=== PATIENT | female | born 1990 | race Caucasian/White ===

== ENCOUNTER → 2016-12-21 | Outpatient (CLI) | payer OTHER ==
[~2016-12-21] MED LIST: CEPH500C PO; PREN1CAP33 PO; SUBO8MIS SL
== END ==
LOC: HPND 11:19
PROVIDERS: ATTEND Obstetrics & Gynecology
DX: O99.322 Drug use complicating pregnancy, second trimester (principal); O09.32 Supervision of pregnancy with insufficient antenatal care, second trimester
CPT/HCPCS: 76811; 76825; 76827; 93325

== ENCOUNTER → 2017-01-24 | Outpatient (CLI) | payer OTHER ==
--- NOTE | 2017-01-24 18:30 | PD.CONS ---
Consult 01/24/17 @ 1330hr Ms. Desir came for outpatient diagnostic and required a consult regarding abstinence syndrome. She is 31 weeks gestation with use of Subutex 2gm per day. No other complications with at this time. Discuss with mother the signs and symptoms of MARVIN. Presented can be taken to maternal room after delivery if no complications arise during labor and delivery. Mother can have in room and instructed for signs to report to nurse so that the scoring is accurate on . will be transferred to NICU if pharmacological interventions is required. Informed mother that pharmacological treatment is started with 2 scores of 9 or 1 score of 10. Mother had done some research and was aware of the nonpharmacological therapies and the importance of breast feeding, which she would like to do. Mother demonstrated understanding and asked appropriate questions. Informed mother that will be under Neonatology Service when deliver. Total time of consult 40 minutes. Nina Tristan, Nina Arredondo January 24, 2017 18:30
== END ==
LOC: HPND 13:12
PROVIDERS: ATTEND Obstetrics & Gynecology
DX: O99.323 Drug use complicating pregnancy, third trimester (principal); O99.333 Smoking (tobacco) complicating pregnancy, third trimester; Z3A.30 30 weeks gestation of pregnancy
CPT/HCPCS: 76816

== ENCOUNTER → 2017-02-23 | Outpatient (CLI) | payer OTHER ==
[~2017-02-23] MED LIST changes: -CEPH500C PO
== END ==
LOC: HPND 14:26
PROVIDERS: ATTEND Obstetrics & Gynecology
DX: O99.322 Drug use complicating pregnancy, second trimester (principal)
CPT/HCPCS: 76816

== ENCOUNTER 2017-03-24 11:09 | Observation (INO) | payer OTHER ==
[2017-03-24] MEDS ORDERED: LACTATED RINGER'S 1000 ML INJ 1,000 ML IV SCH ×2 (11:15→14:24)
[2017-03-24] MEDS ORDERED: TERBUTALINE INJ 1 MG/ML AMP SQ ONE ×2 (11:15→15:00)
--- NOTE | 2017-03-24 11:48 | HHI.HP ---
HPI Chief Complaint Scheduled version Date Seen: Mar 24, 2017 Time Seen: 11:36 Travel History International Travel<30 Days: No Contact w/Intl Traveler<30Days: No History of Present Illness HPI Patient is a 26 year old at 38 and 6/7 weeks gestation, EDC 04/01/17, who presents for version. She endorses [place] contractions daily. She denies leakage of fluid, vaginal bleeding, and contractions. She feels baby moving regularly. [facility] History is remarkable for's substance abuse, currently on Subutex 2 mg per day. OB history is notable for with 2 induced diabetes and 1 full term delivery in 2013 of a 7 lbs. 11 oz. male. She is late to care at 18 weeks. EDC was derived from ultrasound at approximately 20 weeks gestation. labs are reviewed and unremarkable. Patient has document a blood type of B+. History Past Medical History Medical History: Denies Significant Hx Family History Family History: Negative Social History Alcohol Use: No Tobacco Use: No Substance Abuse: Yes (Subutex 2 mg daily reported) Allergies-Medications (Allergen,Severity, Reaction): Coded Allergies: Penicillin (Verified Allergy, Severe, 03/16/17) FAICAL SWELLING Sulfa (Verified Allergy, Severe, 03/16/17) ANAPHALAXIS Vancomycin (Unverified Allergy, Intermediate, Hives, 03/16/17) Home Meds Active Scripts Vit W/ Fe Polysacch C (Vitafol Fe+ 90-1-200 & 50 mg)1 Cap Cap1 Tab PO DAILY #30 BOTTLE Ref 11 Prov:Berenice Smith 12/23/16 Reported Medications Suboxone 8 mg/2 mg 8 mg/2 mg Subl4 Mg SL DAILY SUBLINGUAL STRIP. 03/06/15 Review of Systems Except as stated in HPI: all other systems reviewed are Neg Physical Exam Narrative GENERAL: Well-nourished, well-developed female SKIN: Warm and dry. HEAD: Normocephalic and atraumatic. EYES: No scleral icterus. No injection or drainage. ENT: No nasal drainage noted. Mucous membranes pink. Airway patent. NECK: Supple, trachea midline. No JVD. CARDIOVASCULAR: Regular rate and rhythm without murmurs, gallops, or rubs. RESPIRATORY: Breath sounds equal bilaterally. No accessory muscle use. ABDOMEN/GI: Abdomen soft, non-tender, bowel sounds present, no rebound, no guarding. Breech on palpation. US at bedside notable for breech presentation and anterior placenta. GENITOURINARY: External Genitalia: intact and normal in appearance Cervix: closed, 50%, high, mid pos Uterine Contractions: absent FHT's: Category: 1 Baseline: 140 Reactive:[] Variability: mod Decels: absent EXTREMITIES: No cyanosis or edema. BACK: Nontender without obvious deformity. No CVA tenderness. NEUROLOGICAL: Awake and alert. Motor and sensory grossly within normal limits. Five out of 5 muscle strength in all muscle groups. Normal speech. Data Data Vital Signs Reviewed: Yes (111/73, pulse 118, respirations 18, temp 98.9F) Orders Place In Observation (03/24/17 ) ^ Ultrasound For [place]atio (03/24/17 11:15) ^ Non Stress Test (03/24/17 11:15) ^ Status (03/24/17 11:15) ^ Rhogam (03/24/17 11:15) Lactated Ringer's 1000 Ml Inj (Lr 1000 M (03/24/17 11:15) Terbutaline Inj (Brethine Inj) (03/24/17 11:15) Fentanyl Inj (Fentanyl Inj) (03/24/17 11:15) Complete Blood Count With Diff (03/24/17 11:32) Type And Screen (03/24/17 11:32) Assessment/Plan Assessment and Plan 26-year-old at 38 and 6/7 weeks who is admitted for attempted version of frequent presentation [place] . Intrauterine : Category 1 tracing Patient desires vaginal delivery Breech presentation Will obtain CBC and type and screen Will obtain normal NST and monitored on toco Will attempt bedside after administration of fentanyl and terbutaline If version unsuccessful, we will discharge home, likely schedule section near 40 weeks If complication occurs, may require urgent delivery, for which patient was counseled GBS negative Substance use affecting Subutex 2 mg daily Will need UA/UDS if admitted for labor or Seen and discussed with Dr. Robbins, attending Gisele Velez MD R1 Mar 24, 2017 11:48
[2017-03-24 13:40] LABS: AUTOMATED NEUTROPHIL # 10.4 TH/MM3 (1.8-7.7); BASOPHIL % 0.2 % (0.0-2.0); EOSINOPHIL # 0.2 TH/MM3 (0-0.4); EOSINOPHIL % 1.4 % (0.0-4.0); HEMATOCRIT 34.6 % (35.0-46.0); HEMO FLAGS DIFF FINAL; LYMPH % 18.6 % (9.0-44.0); LYMPHOCYTE # 2.7 TH/MM3 (1.0-4.8); MEAN CELL VOLUME 91.3 FL (80.0-100.0); MEAN CORPUSCULAR HEMOGLOBIN 30.9 PG (27.0-34.0); MEAN CORPUSCULAR HGB CONC 33.8 % (32.0-36.0); MONO % 7.3 % (0.0-8.0); NEUT % 72.5 % (16.0-70.0); PLATELET COUNT 273 TH/MM3 (150-450); RED BLOOD COUNT 3.79 MIL/MM3 (4.00-5.30); RED CELL DISTRIBUTION WIDTH 15.5 % (11.6-17.2); WHITE BLOOD COUNT 14.3 TH/MM3 (4.0-11.0)
--- NOTE | 2017-03-24 14:27 | PD.OB.ANTE ---
Subjective Interval History Procedure note Patient is a 26-year-old white female now at 38 weeks and [address] [facility], she is in a breech presentation and presents for external cephalic version the NST is reactive prior to procedure. No regular contractions noted. Patient given IV access, subcutaneous terbutaline and 50 mg of fentanyl IV. Under ultrasound guidance external cephalic version was undertaken and was successful with the breech moved up into the upper uterus and the head moved into the pelvis with moderate pressure but not excessive adequate amniotic fluid noted. Postprocedure the patient had prolonged NST 1-2 hours and once that is within normal limits and the patient should be able to be discharged home Antepartum ROS: Reports: New complaints, Loss of fluid, Vaginal bleeding, movement normal, Contractions, Other Objective Lab & Micro Results Test 03/24/17 12:55 White Blood Count 14.3 TH/MM3 Red Blood Count 3.79 MIL/MM3 Hemoglobin 11.7 GM/DL Hematocrit 34.6 % Mean Corpuscular Volume 91.3 FL Mean Corpuscular Hemoglobin 30.9 PG Mean Corpuscular Hemoglobin 33.8 % Concent Red Cell Distribution Width 15.5 % Platelet Count 273 TH/MM3 Mean Platelet Volume 8.6 FL Neutrophils (%) (Auto) 72.5 % Lymphocytes (%) (Auto) 18.6 % Monocytes (%) (Auto) 7.3 % Eosinophils (%) (Auto) 1.4 % Basophils (%) (Auto) 0.2 % Neutrophils # (Auto) 10.4 TH/MM3 Lymphocytes # (Auto) 2.7 TH/MM3 Monocytes # (Auto) 1.0 TH/MM3 Eosinophils # (Auto) 0.2 TH/MM3 Basophils # (Auto) 0.0 TH/MM3 CBC Comment DIFF FINAL Differential Comment Physical Exam GENERAL: Well-nourished, well-developed patient. CARDIOVASCULAR: Regular rate and rhythm without murmurs, gallops, or rubs. RESPIRATORY: Breath sounds equal bilaterally. No accessory muscle use. ABDOMEN/GI: Abdomen soft, non-tender. Fundus: [-] GENITOURINARY: External Genitalia: intact and normal in appearance Cervix: [-] Dilatation: [-] Effacement: [-] Station: [-] Presentation: [-] Membranes: [-] Uterine Contractions: [-] FHT's: Category: [-] Baseline: [-] Reactive: [-] Variability: [-] Decels: [-] EXTREMITIES: No cyanosis or edema, non-tender, without signs of DVT. Assessment and Plan Assessment and Plan 26-year-old at 38 and 6/7 weeks who is admitted for attempted version of frequent presentation [place] . Intrauterine : Category 1 tracing Patient desires vaginal delivery Breech presentation Will obtain CBC and type and screen Will obtain normal NST and monitored on toco Will attempt bedside after administration of fentanyl and terbutaline If version unsuccessful, we will discharge home, likely schedule section near 40 weeks If complication occurs, may require urgent delivery, for which patient was counseled GBS negative Substance use affecting Subutex 2 mg daily Will need UA/UDS if admitted for labor or Seen and discussed with Dr. Robbins, attending Gerry Robbins II, MD Mar 24, 2017 14:27
[2017-03-24] MEDS ORDERED: fentaNYL CITRATE 250 MCG/5 ML AMP IV PUSH ONE (15:00)
--- NOTE | 2017-03-24 16:42 | HHI.DCPOC ---
Discharge Care Plan Diagnosis: (1) Cephalic version (2) with 38 completed weeks gestation Report Symptoms to Your Doctor -Temperature above 100.5 degrees -Redness, of incision or excessive or foul smelling drainage -Unusual pain or calf pain -Increased vaginal bleeding -Painful or difficulty urinating -Feelings of extreme sadness or anxiety after 2 weeks Goals to Promote Your Health * To prevent worsening of your condition and complications * To maintain your health at the optimal level Directions to Meet Your Goals Take your medications as prescribed Follow your dietary instruction Follow activity as directed Ensure plenty of rest for recovery Drink fluids for hydration Keep your appointments as scheduled Take your immunizations and boosters as scheduled If your symptoms worsen call your PCP, if no PCP go to Urgent Care Center or Emergency Room Smoking is Dangerous to Your Health. Avoid second hand smoke Call the 24-hour crisis hotline for domestic abuse at Gisele Velez MD R1 Mar 24, 2017 16:42
== END 2017-03-24 16:59 | disposition home or self-care (01) ==
LOC: H2EB 11:09
PROVIDERS: ADMIT Obstetrics & Gynecology Maternal & Fetal Medicine; ATTEND Obstetrics & Gynecology Maternal & Fetal Medicine
DX: O32.1XX0 Maternal care for breech presentation, not applicable or unspecified (principal); O24.92 Unspecified diabetes mellitus in childbirth; E11.9 Type 2 diabetes mellitus without complications
CPT/HCPCS: 85025; 86850; 86900; 86901; G0378; J3010; J3105; J7120

== ENCOUNTER 2017-04-02 06:35 | Inpatient (IN) | payer OTHER ==
[~2017-04-02] VITALS: Ht 160 cm; Wt 83.0 kg
[2017-04-02] MEDS ORDERED: SODIUM CHLOR 0.9% 1000 ML INJ 1,000 ML OTHER PRN (08:09)
[2017-04-02] MEDS ORDERED: SODIUM CHLORIDE 0.9% FLUSH 10 ML FLUSH IV FLUSH PRN (08:15)
[2017-04-02] MEDS ORDERED: MISOPROSTOL 25 MCG SUPP VAGINAL ONE ×2 (08:15→13:15)
--- NOTE | 2017-04-02 08:24 | HHI.HP ---
HPI Chief Complaint scheduled induction Date Seen: Apr 02, 2017 Time Seen: 07:45 Travel History International Travel<30 Days: No Contact w/Intl Traveler<30Days: No Known Affected Area: No History of Present Illness HPI 26y/o with IUP at 40.1 records reviewed and PNC complicated by: 1. subutex use for h/o opiate addiction 2. tobacco use 3. breech, s/p successful version by Dr. Robbins 4. h/o LEEP 5. EAB x2 Patient presents for scheduled IOL. She has no complaints today. She reports good FM, denies VB/LOF or painful regular ctx. Para: 1 : 4 Miscarriage: 0 : 2 History Past Medical History Narrative Medical opiate addiction Obstetric History Obstetric History FT x1 EAB x2 Denies h/o GC/chlam h/o abnl PAP with LEEP Past Surgical History Narrative Surgical EAB x2 R ankle surgery R eye surgery LEEP Family History Family History: Negative Social History Narrative Social History Reports occasioanl glass of wine, about 2/w. 1/2ppd, h/o opiate addiction on subutex Alcohol Use: Yes Tobacco Use: Yes Substance Abuse: Yes Allergies-Medications (Allergen,Severity, Reaction): Coded Allergies: Penicillin (Verified Allergy, Severe, 04/01/17) FAICAL SWELLING Sulfa (Verified Allergy, Severe, 04/01/17) ANAPHALAXIS Vancomycin (Unverified Allergy, Intermediate, Hives, 04/01/17) Home Meds Active Scripts Vit W/ Fe Polysacch C (Vitafol Fe+ 90-1-200 & 50 mg)1 Cap Cap1 Tab PO DAILY #30 BOTTLE Ref 11 Prov:Berenice Smith 12/23/16 Reported Medications Suboxone 8 mg/2 mg 8 mg/2 mg Subl4 Mg SL DAILY SUBLINGUAL STRIP. 03/06/15 Review of Systems Except as stated in HPI: all other systems reviewed are Neg Physical Exam Narrative GENERAL: Well-nourished, well-developed patient. SKIN: Warm and dry. HEAD: Normocephalic and atraumatic. EYES: No scleral icterus. No injection or drainage. ENT: No nasal drainage noted. Mucous membranes pink. Airway patent. NECK: Supple, trachea midline. No JVD. CARDIOVASCULAR: Regular rate and rhythm without murmurs, gallops, or rubs. RESPIRATORY: Breath sounds equal bilaterally. No accessory muscle use. BREASTS: Bilateral exam showed no masses , no retractions, no nipple discharge. ABDOMEN/GI: Abdomen soft, non-tender, bowel sounds present, no rebound, no guarding Gravid GENITOURINARY: External Genitalia: intact and normal in appearance BUS glands: nl Cervix: nl Dilatation: [1] Effacement: [th] Station: [high] Presentation: [cephalic confirmed] Membranes: [intact] Uterine Contractions: [irregular] FHT's: Category: [1] Baseline: [120s] Reactive: [reactive] Variability: [moderate] Decels: [no] EXTREMITIES: No cyanosis or edema. BACK: Nontender without obvious deformity. No CVA tenderness. NEUROLOGICAL: Awake and alert. Motor and sensory grossly within normal limits. Five out of 5 muscle strength in all muscle groups. Normal speech. Data Data Orders Vascular Access Team Consult/P PRN (04/02/17 07:47) Vascular Poc Ultrasound (04/02/17 ) Assessment/Plan Assessment and Plan A/P: 26y/o 1. IUP at 40.1 2. Breech s/p successful version and confirmed cephalic today 3. IOL: discussed risks of , risks/indications of C/S. Discussed various medications for IOL with cytotec vs cervidil vs oxytocin vs balloon ripening. Discussed risks and benefits of each in length. Patient agreeable to cytotec, will place and maintain continuous monitoring for now. 4. h/o opiate addiction: continue subutex 5. h/o abnl PAP s/p LEEP 6. wellbeing: reassuring testing with FHR reassuring and appropriate for gestational age, continue EMF 7. GBS neg 8. B+/RI Berenice Tinoco MD Apr 02, 2017 08:24
[2017-04-02] MEDS: LACTATED RINGER'S 1000 ML INJ 1,000 ML IV SCH ×3 (08:59→22:00)
[2017-04-02] MEDS: SODIUM CHLORIDE 0.9% FLUSH 10 ML FLUSH IV FLUSH SCH ×2 (09:00→21:00)
[2017-04-02 09:15] LABS: AUTOMATED NEUTROPHIL # 9.4 TH/MM3 (1.8-7.7); BASOPHIL % 0.2 % (0.0-2.0); EOSINOPHIL # 0.2 TH/MM3 (0-0.4); EOSINOPHIL % 1.2 % (0.0-4.0); HEMATOCRIT 33.4 % (35.0-46.0); HEMO FLAGS DIFF FINAL; LYMPH % 20.7 % (9.0-44.0); LYMPHOCYTE # 2.7 TH/MM3 (1.0-4.8); MEAN CELL VOLUME 91.9 FL (80.0-100.0); MEAN CORPUSCULAR HEMOGLOBIN 30.9 PG (27.0-34.0); MEAN CORPUSCULAR HGB CONC 33.6 % (32.0-36.0); MONO % 6.7 % (0.0-8.0); NEUT % 71.2 % (16.0-70.0); PLATELET COUNT 277 TH/MM3 (150-450); RED BLOOD COUNT 3.63 MIL/MM3 (4.00-5.30); RED CELL DISTRIBUTION WIDTH 16.3 % (11.6-17.2); WHITE BLOOD COUNT 13.2 TH/MM3 (4.0-11.0)
[2017-04-02] MEDS ORDERED: LIDOCAINE HCL 1% 30 ML VIAL OTHER ONE (09:28)
[2017-04-02 09:40] LABS: BLOOD, URINE NEG (NEG); COMMENT (UR) CULT NOT INDICATED; CULTURE IF INDICATED CULT NOT INDICATED; GLUCOSE,URINE NEG (NEG); KETONE, URINE NEG (NEG); MUCUS URINE FEW /lpf (OCC); NITRITE,URINE NEG (NEG); PH, URINE 6.5 (5.0-8.5); SQUAMOUS EPITHELIAL CELL URINE 3 /hpf (0-5); URINE COLOR YELLOW (YELLW/STRAW)
[2017-04-02 09:44] LABS: AMPHETAMINE, URINE NEG (NEG); BARBITURATES, URINE NEG (NEG); COCAINE, URINE NEG (NEG)
--- NOTE | 2017-04-02 13:13 | PD.LABORPN ---
Subjective Subjective Pt comfortable, feels occasional contraction. FHR Category 1. SVE: FT/50%/- 3 station. Plan; IOL at term. Insert 32 Misoprostil 25mcg Objective Objective Pelvic Exam: Cervix: [soft] Dilatation: [FT-] Effacement: [50%-] Station: [-3] Presentation: [-] Membranes: [intact] Uterine Contractions: [-] FHT's: Category: [-] Baseline: [-] Reactive: [-] Variability: [-] Decels: [-] Assessment/Plan Assessment and Plan Misoprostil 25mcg inserted posterior fornix. Tj Moon MD Apr 02, 2017 13:13
[2017-04-02] MEDS ORDERED: DINOPROSTONE 10 MG VAG INSERT VAGINAL ONE (18:15)
[2017-04-02 19:56] VITALS: BP 120/73; PULSE 91
[2017-04-02 20:00] VITALS: RESP 18; TEMP 98.5
[2017-04-03] VITALS (44 sets, daily range): BP systolic 91–145; BP diastolic 38–83; PULSE 18–101; RESP 17–19; TEMP 98–98.7
[2017-04-03] MEDS: LACTATED RINGER'S 1000 ML INJ 1,000 ML IV SCH (06:00)
[2017-04-03] MEDS ORDERED: ePHEDrine/NS 25 MG/5 ML SYR ONE (08:23)
[2017-04-03] MEDS ORDERED: fentaNYL 2MCG-BUPIV 0.125% INJ 100 ML ONE (08:23)
--- NOTE | 2017-04-03 08:29 | PD.LABORPN ---
Subjective Subjective feeling painful contractions Objective Vital Signs FHR Cat 1 Irregular contractions on TOCO Objective Pelvic Exam: Cervix: [soft-] CERVIDIL REMOVED Dilatation: [2-3cm] Effacement: [80%] Station: [-3] Presentation: [vertex] Membranes: [intact] Uterine Contractions: [irregular] FHT's: Category: [I] Baseline: [130] Reactive: [Y] Variability: [-] Decels: [-] Assessment/Plan Assessment and Plan TERM LABOR, IOL after breech version. pt takes her own sublingual SUBOXONE. Pt had x2 Misoprostil 25mcg without any cervical change. We had difficulty with vascular access, and she has central line placed by anesthesia. Cervidil has been removed. We plan Pitocin per protocol. AROM when able, GBS negative. She plans epidural. Tj Moon MD Apr 03, 2017 08:29
[2017-04-03] MEDS ORDERED: OXYTOCIN 30 UNITS-500ML PREMIX 500 ML IV SCH (08:30)
[2017-04-03] MEDS ORDERED: fentaNYL 2MCG-BUPIV 0.125% 100 ML EPIDURAL SCH (10:00)
[2017-04-03] MEDS ORDERED: NO SYSTEM NARCOTICS PRN (10:00)
[2017-04-03] MEDS ORDERED: DO NOT ADMINISTER ANTICOAGULANTS PRN (10:00)
[2017-04-03] MEDS ORDERED: ePHEDrine/NS 25 MG/5 ML SYR IV PRN (10:00)
--- NOTE | 2017-04-03 11:09 | PD.LABORPN ---
Subjective Subjective Change of shifts Dr. Syed coming on duty Chart reviewed: This patient is a 26-year-old 4 para 1 presently at 40 weeks and 1 day admitted for induction of labor she is status post a successful version from breech to vertex History of a LEEP procedure Cigarette smoker History of opioid addiction presently onset subutex She was given 2 doses of Cytotec, rubs, received Cervidil which was removed and is presently on Pitocin at 4 milliunits Has received an epidural and is comfortable Objective Vital Signs Vital Signs Date Time Temp Pulse Resp B/P Pulse Ox O2 Delivery O2 Flow Rate FiO2 04/03/17 10:15 17 04/03/17 10:01 132/79 04/03/17 10:00 118/76 04/03/17 10:00 18 04/03/17 09:30 17 04/03/17 09:20 73 04/03/17 09:16 121/77 04/03/17 09:15 121/74 04/03/17 09:15 74 04/03/17 09:13 18 04/03/17 09:10 73 04/03/17 09:00 17 04/03/17 08:55 81 04/03/17 08:50 130/78 04/03/17 08:50 86 04/03/17 08:49 84 130/83 04/03/17 08:45 88 04/03/17 08:15 18 04/03/17 08:09 98.1 04/03/17 08:08 85 133/79 04/03/17 05:30 98.3 18 04/03/17 05:24 85 110/63 Objective Pelvic Exam: Cervix: [-] Midline Dilatation: [-] 4 cm Effacement: [-] 80% effaced Station: [-] -2 station Presentation: [-] Vertex Membranes: Patient reports feeling a leak at around 10 AM on exam there was no membranes present attempt at rupturing no fluid present Uterine Contractions: [-] Irregular FHT's: Category: [-] 1 Baseline: [-] 130 Reactive: [-] + Variability: [-] Moderate [id number] variability Decels: [-] 0 Assessment/Plan Assessment and Plan IUP at 40 weeks and 1 day Status post successful version from breech to vertex Induction of labor Plan Continue present management however increase Pitocin by 1 milliunit every 30 minutes Anticipate vaginal delivery Nadege Araiza MD Apr 03, 2017 11:09
--- NOTE | 2017-04-03 13:43 | PD.LABORPN ---
Subjective Subjective Comfortable Objective Vital Signs Vital Signs Date Time Temp Pulse Resp B/P Pulse Ox O2 Delivery O2 Flow Rate FiO2 04/03/17 13:15 83 17 109/63 04/03/17 13:00 18 04/03/17 12:56 98.6 04/03/17 12:45 17 04/03/17 12:44 17 04/03/17 12:15 92 118/64 04/03/17 12:15 18 04/03/17 11:15 86 112/68 04/03/17 11:15 19 04/03/17 11:14 98.3 04/03/17 11:00 18 04/03/17 10:15 17 04/03/17 10:01 132/79 04/03/17 10:00 118/76 04/03/17 10:00 71 04/03/17 10:00 18 04/03/17 09:30 17 04/03/17 09:20 73 04/03/17 09:16 121/77 04/03/17 09:15 121/74 04/03/17 09:15 74 04/03/17 09:13 18 04/03/17 09:10 73 04/03/17 09:00 04/03/17 08:55 81 04/03/17 08:50 130/78 04/03/17 08:50 86 04/03/17 08:49 84 130/83 04/03/17 08:45 88 04/03/17 08:15 04/03/17 08:09 98.1 04/03/17 08:08 85 133/79 Objective Pelvic Exam: Cervix: [-] Midline Dilatation: [-] 4-5 cm Effacement: [-] 80% effaced Station: [-] -2 Presentation: [-] Vertex Membranes: r ruptured] 4 bag ruptured clear fluid scant Uterine Contractions: [-] Every 3 minutes at 5 milliunits of Pitocin FHT's: Category: [-] 1 Baseline: [-] 120 Reactive: [-] + Accelerations with scalp stim Variability: [-] Moderate Decels: [-] Appears to have had a variable as the patient moved Assessment/Plan Assessment and Plan Small amount of progress made Continue present management will leave the Pitocin at 5 milliunits Reevaluation Nadege Araiza MD Apr 03, 2017 13:43
[2017-04-03] MEDS ORDERED: DIPHTH/TETANUS/ACEL PERTUSSIS (BOOSTER) 0.5 ML VIAL/PFS IM ONE (16:00)
[2017-04-03] MEDS ORDERED: MEASLES, MUMPS, RUBELLA VACCINE 0.5 ML VIAL SQ ONE (16:00)
[2017-04-03] MEDS ORDERED: BUPIVACAINE HCL PF 0.25% 10 ML VIAL ONE (18:14)
--- NOTE | 2017-04-03 18:48 | PD.OB.DELI ---
Delivery Date: Apr 03, 2017 Anesthesia: Epidural Episiotomy: None Vaginal Delivery: Normal Presentation: Occiput anterior Nuchal Cord: None Delayed cord clamping (45 sec): Yes : Male One Minute : 9 Five Minute : 9 Weight: 7-3 Placenta: Spontaneous delivery, Intact, 3 vessel cord Additional Information With epidural in place the patient progressed to completely dilated completely effaced she delivered over an intact perineum a viable male weight 7 lbs. 3 oz. Apgars of 9 at 1 minute 9 at 5 minutes. Placenta delivered spontaneously and intact she sustained no lacerations the uterus is firm there was no active bleeding Estimated blood less than 300 cc Sponge and instrument count were correct Baby stable mother stable Nadege Araiza MD Apr 03, 2017 18:48
[2017-04-03] MEDS ORDERED: WITCH HAZEL 50%/GLYCERIN 12.5% 40 PAD JAR TOPICAL PRN (19:00)
[2017-04-03] MEDS ORDERED: BENZOCAINE 20% TOPICAL SPRAY 60 ML CAN TOPICAL PRN (19:00)
[2017-04-03] MEDS ORDERED: DOCUSATE SODIUM 50 MG/SENNA 8.6 MG TAB PO PRN (19:00)
[2017-04-03] MEDS ORDERED: ONDANSETRON ODT 4 MG TAB PO PRN (19:00)
[2017-04-03] MEDS ORDERED: ALUMINUM/MAGNESIUM/SIMETH 30 ML CUP PO PRN (19:00)
[2017-04-03] MEDS ORDERED: ZOLPIDEM TARTRATE 5 MG TAB PO PRN (19:00)
[2017-04-03] MEDS ORDERED: SODIUM CHLORIDE 0.9% FLUSH 10 ML FLUSH IV FLUSH PRN (19:00)
[2017-04-03] MEDS: IBUPROFEN 600 MG TAB PO PRN (20:20)
[2017-04-03] MEDS ORDERED: SODIUM CHLORIDE 0.9% FLUSH 10 ML FLUSH IV FLUSH SCH (21:00)
[2017-04-04 00:01] VITALS: BP 131/67; PULSE 91; RESP 20; TEMP 98.9
[2017-04-04] MEDS: IBUPROFEN 600 MG TAB PO PRN ×2 (05:47→17:00)
[2017-04-04] MEDS: ACETAMINOPHEN 325 MG TAB PO PRN ×2 (05:47→17:00)
[2017-04-04 08:05] VITALS: BP 112/71; PULSE 86; RESP 18; TEMP 98
[2017-04-04] MEDS ORDERED: medroxyPROGESTERone ACETATE SUSP 150 MG/ML SYRINGE IM ONE (08:30)
[2017-04-04 08:45] VITALS: BP 112/71; PULSE 86; RESP 18; TEMP 98
--- NOTE | 2017-04-04 09:03 | HHI.OB ---
Subjective Post Day: 1 Remarks 26 year old female s/p at 40 wks gestation, PPD 1. AFVSS. Patient reports she is feeling well. Bleeding is decreasing and pain is well- controlled. She is formula feeding and bonding well with baby. Ambulating without difficulties. She is tolerating a diet without nausea or vomiting. She has had a bowel movement. She has passed gas. Denies chest pain, dysuria, shortness of breath, or calf pain. Objective Vitals/I&O Vital Signs Date Time Temp Pulse Resp B/P Pulse Ox O2 Delivery O2 Flow Rate FiO2 04/04/17 00:01 98.9 91 20 131/67 04/04/17 00:01 98.9 91 20 131/67 04/03/17 21:20 18 04/03/17 20:53 18 04/03/17 20:22 98.7 04/03/17 20:22 98 18 130/75 04/03/17 20:15 93 18 121/63 04/03/17 19:43 18 04/03/17 19:30 92 18 129/76 04/03/17 19:15 93 131/66 04/03/17 19:15 18 04/03/17 19:00 101 18 115/80 04/03/17 18:45 19 18 91/38 04/03/17 18:26 122/74 04/03/17 18:22 86 18 116/69 04/03/17 18:00 19 04/03/17 17:30 19 04/03/17 16:42 100 18 129/78 04/03/17 15:30 98.0 04/03/17 15:30 85 104/63 04/03/17 14:30 98 17 118/61 04/03/17 13:15 83 17 109/63 04/03/17 13:00 18 04/03/17 12:56 98.6 04/03/17 12:45 17 04/03/17 12:44 17 04/03/17 12:15 92 118/64 04/03/17 12:15 18 04/03/17 11:15 86 112/68 04/03/17 11:15 19 04/03/17 11:14 98.3 04/03/17 11:00 18 04/03/17 10:15 17 04/03/17 10:01 132/79 04/03/17 10:00 118/76 04/03/17 10:00 71 04/03/17 10:00 18 04/03/17 09:30 17 04/03/17 09:20 73 04/03/17 09:16 121/77 04/03/17 09:15 121/74 04/03/17 09:15 74 04/03/17 09:13 18 04/03/17 09:10 73 Objective Remarks GENERAL: Well-nourished, well-developed patient. CARDIOVASCULAR: Regular rate and rhythm without murmurs, gallops, or rubs. RESPIRATORY: Breath sounds equal bilaterally. No accessory muscle use. ABDOMEN/GI: Abdomen soft, non-tender. Fundus: Firm, non-tender at umbilicus. GENITOURINARY: Light to moderate bleeding. EXTREMITIES: No cyanosis or edema, non-tender, without signs of DVT. Medications and IVs Current Medications Medications (Trade) Dose Ordered Sig/Alexandro Route Start Time Stop Time Status Last Admin Lactated Ringer's 1,000 ml @ 125 mls/hr Q8H IV 04/02/17 08:09 04/03/17 06:00 (Pitocin 30 Units-NS 500 ml Premix) 500 ml @ 0 mls/hr TITRATE IV 04/03/17 08:30 04/03/17 09:25 Miscellaneous Information No systemic narcotics to be given except... UNSCH PRN .XX 04/03/17 10:00 04/04/17 09:59 Miscellaneous Information DO NOT ADMINISTER ANY ANTICOAGUL... UNSCH PRN .XX 04/03/17 10:00 04/04/17 09:59 (fentaNYL 2MCG-BUPIV 0.125% INJ) 100 ml @ 0 mls/hr TITRATE EPIDURAL 04/03/17 10:00 04/03/17 12:44 (ePHEDrine/NS 25 MG/5 ML SYR) 10 mg UNSCH PRN IV 04/03/17 10:00 04/04/17 09:59 (NS Flush) 2 ml BID IV FLUSH 04/03/17 21:00 (NS Flush) 2 ml UNSCH PRN IV FLUSH 04/03/17 19:00 (Tylenol) 650 mg Q4H PRN PO 04/03/17 19:00 04/04/17 05:47 (Motrin) 600 mg Q6H PRN PO 04/03/17 19:00 04/04/17 05:47 (Americaine 20% Top Spr) 1 spray Q4H PRN TOPICAL 04/03/17 19:00 (Tucks Pads) 1 applic QID PRN TOPICAL 04/03/17 19:00 (Vikki-Colace) 2 tab Q12H PRN PO 04/03/17 19:00 (Ambien) 5 mg HS PRN PO 04/03/17 19:00 (Mag-Al Plus Susp Liq) 15 ml Q8H PRN PO 04/03/17 19:00 (Zofran Odt) 4 mg Q6H PRN PO 04/03/17 19:00 Assessment/Plan Assessment and Plan 26 yo female s/p , PPD 1 - AFVSS - Continue routine care - Motrin PRN pain - Encourage OOB - Pelvic rest x 6 wks. - Contraception: Depo-Provera shot, given 04/04 - Anticipate D/C 04/05 Dawson Smith MD R1 Apr 04, 2017 09:03
[2017-04-04 20:25] VITALS: BP 110/71; PULSE 80; RESP 14; TEMP 98
[2017-04-05] MEDS ORDERED: IBUP-232 PO (06:26)
--- NOTE | 2017-04-05 06:27 | HHI.DCPOC ---
Discharge Care Plan Diagnosis: (1) Normal vaginal delivery Report Symptoms to Your Doctor -Temperature above 100.5 degrees -Redness, of incision or excessive or foul smelling drainage -Unusual pain or calf pain -Increased vaginal bleeding -Painful or difficulty urinating -Feelings of extreme sadness or anxiety after 2 weeks Goals to Promote Your Health * To prevent worsening of your condition and complications * To maintain your health at the optimal level Directions to Meet Your Goals Take your medications as prescribed Follow your dietary instruction Follow activity as directed Ensure plenty of rest for recovery Drink fluids for hydration Keep your appointments as scheduled Take your immunizations and boosters as scheduled If your symptoms worsen call your PCP, if no PCP go to Urgent Care Center or Emergency Room Smoking is Dangerous to Your Health. Avoid second hand smoke Call the 24-hour crisis hotline for domestic abuse at Dawson Smith MD R1 Apr 05, 2017 06:27
[2017-04-05 08:00] VITALS: BP 109/70; PULSE 70; RESP 16; TEMP 98.1
--- NOTE | 2017-04-05 08:23 | HHI.OB ---
Subjective Post Day: 2 Remarks 26 year old female s/p at 40 wks gestation, PPD 2. AFVSS. Patient reports she is feeling well. Bleeding is decreasing and pain is well- controlled. She is breast feeding and bonding well with baby. Ambulating without difficulties. She is tolerating a diet without nausea or vomiting. She has had a bowel movement. She has passed gas. Denies chest pain, dysuria, shortness of breath, or calf pain. Objective Vitals/I&O Vital Signs Date Time Temp Pulse Resp B/P Pulse Ox O2 Delivery O2 Flow Rate FiO2 04/04/17 20:25 98.0 80 14 110/71 04/04/17 08:45 98.0 86 18 112/71 Objective Remarks GENERAL: Well-nourished, well-developed patient. CARDIOVASCULAR: Regular rate and rhythm without murmurs, gallops, or rubs. RESPIRATORY: Breath sounds equal bilaterally. No accessory muscle use. ABDOMEN/GI: Abdomen soft, non-tender. Fundus: Firm, non-tender at umbilicus. GENITOURINARY: Light to moderate bleeding. EXTREMITIES: No cyanosis or edema, non-tender, without signs of DVT. Medications and IVs Current Medications Medications (Trade) Dose Ordered Sig/Alexandro Route Start Time Stop Time Status Last Admin Lactated Ringer's 1,000 ml @ 125 mls/hr Q8H IV 04/02/17 08:09 04/03/17 06:00 Oxytocin 500 ml @ 0 mls/hr TITRATE IV 04/03/17 08:30 04/03/17 09:25 (fentaNYL 2MCG-BUPIV 0.125% INJ) 100 ml @ 0 mls/hr TITRATE EPIDURAL 04/03/17 10:00 04/03/17 12:44 (NS Flush) 2 ml BID IV FLUSH 04/03/17 21:00 (NS Flush) 2 ml UNSCH PRN IV FLUSH 04/03/17 19:00 (Tylenol) 650 mg Q4H PRN PO 04/03/17 19:00 04/04/17 17:00 (Motrin) 600 mg Q6H PRN PO 04/03/17 19:00 04/04/17 17:00 (Americaine 20% Top Spr) 1 spray Q4H PRN TOPICAL 04/03/17 19:00 (Tucks Pads) 1 applic QID PRN TOPICAL 04/03/17 19:00 (Vikki-Colace) 2 tab Q12H PRN PO 04/03/17 19:00 (Ambien) 5 mg HS PRN PO 04/03/17 19:00 (Mag-Al Plus Susp Liq) 15 ml Q8H PRN PO 04/03/17 19:00 (Zofran Odt) 4 mg Q6H PRN PO 04/03/17 19:00 Assessment/Plan Assessment and Plan 26 yo female s/p , PPD 2 - AFVSS - Continue routine care - Motrin PRN pain - Encourage OOB - Pelvic rest x 6 wks. - Contraception: Depo-Provera shot, given 04/04 - Discharge home today Dawson Smith MD R1 Apr 05, 2017 08:23
[2017-04-06 17:17] LABS: PHENCYCLIDINE URINE NEG (NEG)
[2017-04-06 17:18] LABS: BATH SALTS (MDPV) UR NEG (NEG); ECSTASY (MDMA) UR NEG (NEG); HEROIN (6-ACETYLMORPHINE) UR NEG (NEG); K2 SPICE UR NEG (NEG); OBMETHADONE UR NEG (NEG); OXYCODONE (PERCODAN) NEG (NEG)
[2017-04-06 17:19] LABS: GABAPENTIN UR NEG (NEG); HYDROMORPHONE U NEG (NEG)
== END 2017-04-05 12:16 | disposition home or self-care (01) | DRG 794 ==
LOC: H2EB 06:35 → H1EA 04-03 22:02
PROVIDERS: ADMIT Obstetrics & Gynecology; ATTEND Obstetrics & Gynecology
PROC: 3E033VJ Introduction of Other Hormone into Peripheral Vein, Percutaneous Approach (ICD-10-PCS; 2017-04-02)
PROC: 10E0XZZ Delivery of Products of Conception, External Approach (ICD-10-PCS; principal; 2017-04-03)
DX: P08.21 Post-term newborn (principal); O99.324 Drug use complicating childbirth; F11.20 Opioid dependence, uncomplicated; O99.334 Smoking (tobacco) complicating childbirth; F17.210 Nicotine dependence, cigarettes, uncomplicated
CPT/HCPCS: 59025; 76937; 80307; 81001; 85025; 86850; 86900; 86901; G0481; J1050; J2590; J7120